=== PATIENT | male | born 1985 | race Caucasian/White ===

== ENCOUNTER 2017-12-08 07:57 | Emergency (ER) | payer OTHER ==
[~2017-12-08] VITALS: Ht 177.8 cm; Wt 97.4 kg
[2017-12-08 08:55] LABS: HEMATOCRIT 37.6 % (38.0-50.0); HEMOGLOBIN 12.8 G/DL (12.5-16.6); MCH 28.8 PG (29.0-34.0); MCV 84.5 FL (86-99); PLATELET COUNT 284 K/uL (156-360); RBC DIS.WIDTH-CV 14.8 % (11.8-14.6); RBC DIS.WIDTH-SD 45.5 % (39-53); RED BLOOD COUNT 4.45 M/uL (4.00-5.50); WHITE BLOOD COUNT 8.5 K/uL (4.1-10.2)
[2017-12-08 09:04] LABS: CHLORIDE 106 mEq/L (99-109); POTASSIUM 3.9 mEq/L (3.7-5.4); SODIUM 141 mEq/L (136-147)
[2017-12-08 09:06] LABS: GLUCOSE 149 mg/dL (70-99)
[2017-12-08 09:10] LABS: GFR ESTIMATE (CALCULATED) > 59 mL/min/ (58.99-99999)
[2017-12-08 09:11] LABS: UREA NITROGEN (BUN) 15 mg/dL (9-23)
[2017-12-08] MEDS ORDERED: BACTRIM,SEPT1 TABLET PO (13:28)
[2017-12-08] MEDS ORDERED: AUGMENTIN875 MG PO (13:28)
[2017-12-08 13:51] VITALS: BP 152/86
== END 2017-12-08 13:54 | disposition left against medical advice (07) ==
LOC: EME 07:57
PROVIDERS: Physician Assistant
DX: L02.413 Cutaneous abscess of right upper limb (principal); L03.113 Cellulitis of right upper limb; F11.10 Opioid abuse, uncomplicated; F17.200 Nicotine dependence, unspecified, uncomplicated
CPT/HCPCS: 73090; 80048; 83605; 85027; 87070; 87075; 87077; 87186; 87205; 93970; 99281; 99285; J3370; J7030

== ENCOUNTER 2018-01-06 04:47 | Inpatient (IN) | payer OTHER ==
[~2018-01-06] VITALS: Ht 175.3 cm; Wt 96.5 kg
[~2018-01-06 04:47] MED LIST: AUGMENTIN875 MG PO; BACTRIM,SEPT1 TABLET PO
[2018-01-06 06:10] LABS: CHLORIDE 105 mEq/L (99-109); POTASSIUM 4.7 mEq/L (3.7-5.4); SODIUM 139 mEq/L (136-147)
[2018-01-06 06:13] LABS: GLUCOSE 86 mg/dL (70-99); TOTAL PROTEIN 7.2 g/dL (6.4-8.3)
[2018-01-06 06:14] LABS: TOTAL BILIRUBIN 0.3 mg/dL (0.0-1.0)
[2018-01-06 06:16] LABS: ALKALINE PHOSPHATASE 55 IU/L (3-129); GFR ESTIMATE (CALCULATED) > 59 mL/min/ (58.99-99999)
[2018-01-06 06:17] LABS: UREA NITROGEN (BUN) 14 mg/dL (9-23)
[2018-01-06 06:18] LABS: AST (GOT) 23 IU/L (2-34)
[2018-01-06 06:19] LABS: ALT (GPT) 13 IU/L (3-49)
[2018-01-06 07:04] LABS: C-REACTIVE PROTEIN 17.2 MG/L (0-10)
[2018-01-06 08:38] LABS: HEMATOCRIT 39.1 % (38.0-50.0); HEMOGLOBIN 13.4 G/DL (12.5-16.6); MCH 29.4 PG (29.0-34.0); MCHC 34.3 G/DL (30.0-36.0); MCV 85.7 FL (86-99); PLATELET COUNT 261 K/uL (156-360); RBC DIS.WIDTH-CV 15.3 % (11.8-14.6); RBC DIS.WIDTH-SD 47.7 % (39-53); RED BLOOD COUNT 4.56 M/uL (4.00-5.50); WHITE BLOOD COUNT 9.8 K/uL (4.1-10.2)
[2018-01-06 11:17] VITALS: BP 137/86
[2018-01-07] MEDS ORDERED: BACTRIM,SEPT1 TABLET PO (00:52)
[2018-01-07] MEDS ORDERED: AUGMENTIN875 MG PO (00:52)
== END 2018-01-06 14:16 | disposition left against medical advice (07) | DRG 603 ==
LOC: EME 04:47 → EDOF 09:34 → ENRESERV 09:36 → 5SOUTH 11:08
PROVIDERS: Nurse Practitioner Family; Physician Assistant
DX: L03.114 Cellulitis of left upper limb (principal); L03.113 Cellulitis of right upper limb; F11.20 Opioid dependence, uncomplicated; S61.401A Unspecified open wound of right hand, initial encounter; S51.802A Unspecified open wound of left forearm, initial encounter; S61.402A Unspecified open wound of left hand, initial encounter; X78.8XXA Intentional self-harm by other sharp object, initial encounter; Y93.89 Activity, other specified; F17.200 Nicotine dependence, unspecified, uncomplicated; E66.01 Morbid (severe) obesity due to excess calories; Z68.31 Body mass index [BMI] 31.0-31.9, adult
CPT/HCPCS: 73201; 80053; 80306 90; 83605; 85027; 86140; 87040; 87070; 87075; 87077; 87186; 87205; 87641; J3370

== ENCOUNTER 2018-01-06 23:14 | Emergency (ER) | payer OTHER ==
[2018-01-07] MEDS ORDERED: AUGMENTIN875 MG PO (00:52)
[2018-01-07] MEDS ORDERED: BACTRIM,SEPT1 TABLET PO (00:52)
== END 2018-01-06 23:56 | disposition left against medical advice (07) ==
LOC: EME 23:14
DX: M79.89 Other specified soft tissue disorders (principal); Z53.21 Procedure and treatment not carried out due to patient leaving prior to being seen by health care provider

== ENCOUNTER 2018-01-07 00:18 | Emergency (ER) | payer OTHER ==
[~2018-01-07] VITALS: Ht 175.3 cm; Wt 97.5 kg
[2018-01-07] MEDS ORDERED: AUGMENTIN875 MG PO (00:52)
[2018-01-07] MEDS ORDERED: BACTRIM,SEPT1 TABLET PO (00:52)
[2018-01-07 01:25] VITALS: BP 143/96
== END 2018-01-07 11:12 | disposition home or self-care (01) ==
LOC: EME 00:18
DX: L03.119 Cellulitis of unspecified part of limb (principal); F11.10 Opioid abuse, uncomplicated; Z53.29 Procedure and treatment not carried out because of patient's decision for other reasons; F17.200 Nicotine dependence, unspecified, uncomplicated

== ENCOUNTER 2018-01-17 20:17 | Emergency (ER) | payer OTHER ==
[~2018-01-17] VITALS: Ht 177.8 cm; Wt 97.6 kg
[2018-01-17] MEDS ORDERED: BACTRIM,SEPT1 TABLET PO (22:30)
[2018-01-17] MEDS ORDERED: AUGMENTIN875 MG PO (22:30)
[2018-01-17 22:36] VITALS: BP 128/78
== END 2018-01-19 22:30 | disposition home or self-care (01) ==
LOC: EME 20:17
DX: L02.414 Cutaneous abscess of left upper limb (principal); L02.413 Cutaneous abscess of right upper limb; F19.10 Other psychoactive substance abuse, uncomplicated; F17.200 Nicotine dependence, unspecified, uncomplicated
CPT/HCPCS: 99281; 99283

== ENCOUNTER 2018-02-04 20:14 | Inpatient (IN) | payer OTHER ==
[~2018-02-04] VITALS: Ht 175.3 cm; Wt 100.3 kg
[2018-02-04] MEDS ORDERED: METHADONE H5 MG/5 ML PO (22:30)
[2018-02-04 22:56] LABS: BASOPHIL (%) 0.8 % (0-1); BASOPHIL COUNT 0.1 K/uL (0-0.1); EOSINOPHIL (%) 3.8 % (0-5); EOSINOPHIL COUNT 0.3 K/uL (0-0.3); HEMOGLOBIN 13.1 G/DL (12.5-16.6); IMMATURE GRANULOCYTE (%) 0.4 % (0.0-0.7); LYMPHOCYTE (%) 24.5 % (15-42); LYMPHOCYTE COUNT 1.9 K/uL (1.0-2.8); MCH 28.3 PG (29.0-34.0); MCHC 33.6 G/DL (30.0-36.0); MCV 84.2 FL (86-99); MONOCYTE (%) 7.2 % (3-12); MONOCYTE COUNT 0.6 K/uL (0-0.8); NEUTROPHIL (%) 63.3 % (45-76); NEUTROPHIL COUNT 4.8 K/uL (1.8-6.4); PLATELET COUNT 298 K/uL (156-360); RBC DIS.WIDTH-CV 15.5 % (11.8-14.6); RBC DIS.WIDTH-SD 47.3 % (39-53); RED BLOOD COUNT 4.63 M/uL (4.00-5.50); WHITE BLOOD COUNT 7.6 K/uL (4.1-10.2)
[2018-02-04 23:13] LABS: CHLORIDE 105 mEq/L (99-109)
[2018-02-04 23:14] LABS: POTASSIUM 3.8 mEq/L (3.7-5.4); SODIUM 139 mEq/L (136-147)
[2018-02-04 23:15] LABS: GLUCOSE 116 mg/dL (70-99)
[2018-02-04 23:19] LABS: CREATININE 1.1 mg/dL (0.6-1.3); GFR ESTIMATE (CALCULATED) > 59 mL/min/ (58.99-99999)
[2018-02-04 23:20] LABS: UREA NITROGEN (BUN) 12 mg/dL (9-23)
[2018-02-05 01:01] VITALS: BP 154/94
== END 2018-02-05 02:56 | disposition left against medical advice (07) | DRG 603 ==
LOC: EME 20:14 → EDOF 02-05 01:47 → ENRESERV 02-05 01:51 → CANRESERV 02-05 02:10 → ENRESERV 02-05 02:10 → EDOF 02-05 02:56
PROVIDERS: Physician Assistant
DX: L03.113 Cellulitis of right upper limb (principal); L03.114 Cellulitis of left upper limb; S91.032A Puncture wound without foreign body, left ankle, initial encounter; S51.031A Puncture wound without foreign body of right elbow, initial encounter; S41.131A Puncture wound without foreign body of right upper arm, initial encounter; X78.8XXA Intentional self-harm by other sharp object, initial encounter; F11.20 Opioid dependence, uncomplicated; F17.200 Nicotine dependence, unspecified, uncomplicated; Z91.19 Patient's noncompliance with other medical treatment and regimen
CPT/HCPCS: 80048; 81003; 83605; 85025; 87040; 99281; 99285; J1200; J2543; J3370